=== PATIENT | male | born 1975 | race African-American/Black ===

== ENCOUNTER 2017-04-22 14:48 | Emergency (ER) | payer OTHER ==
[~2017-04-22] VITALS: Ht 188 cm; Wt 107.0 kg
[2017-04-22 14:53] VITALS: TEMP 36.9; Ht 188 cm; Wt 107.0 kg
[2017-04-22] MEDS ORDERED: ONDANSETRON INJ 2 MG/ML 2 ML VIAL IV STA (15:38)
[2017-04-22] MEDS ORDERED: SODIUM CHLORIDE 0.9% 500ML 500 ML IV STA (15:38)
[2017-04-22] MEDS ORDERED: MoRPHine SULFATE 10 MG/ML CARP/VIAL IV STA ×2 (15:38→17:55)
[2017-04-22] MEDS ORDERED: KETOROLAC TROMETHAMINE 30 MG/ML VIAL IV STA (15:38)
[2017-04-22] MEDS ORDERED: DEXAMETHASONE SOD INJ 4 MG/ML VIAL IV STA (15:38)
[2017-04-22 16:11] LABS: BASO % 0.3 %; BASO ABS # 0.02 K/uL (0-0.2); COMPLETE YES; EOS % 0.3 %; HEMATOCRIT 45.4 % (42-52); IG% 0.1 %; LYMPH % 34.3 %; LYMPH ABS # 2.38 K/uL (1.2-3.4); MEAN CELL VOLUME 86.8 fL (80-100); MEAN CORPUSCULAR HEMOGLOBIN 31.9 pg (25-34); MEAN CORPUSCULAR HGB CONC 36.8 g/dl (32-36); MEAN PLATELET VOLUME 10.1 fL (7.4-10.4); MONO % 12.1 %; NEUT % 52.9 %; PLATELET COUNT 212 K/uL (130-400); RED BLOOD COUNT 5.23 M/uL (4.7-6.1); WHITE BLOOD COUNT 6.94 K/uL (4.8-10.8)
[2017-04-22 16:30] LABS: BLOOD UREA NITROGEN 17 mg/dl (7-18); BUN/CREATININE RATIO 15.3 (10-20); CALCIUM 9.3 mg/dl (8.5-10.1); CARBON DIOXIDE 25 mmol/L (21-32); CHLORIDE 108 mmol/L (98-107); GLUCOSE 100 mg/dl (70-99); POTASSIUM 3.3 mmol/L (3.5-5.1); SODIUM 142 mmol/L (136-145)
[2017-04-22 16:31] LABS: C-REACTIVE PROTEIN < 0.29 mg/dl (0-0.29)
--- NOTE | 2017-04-22 17:06 | DIAGNOSTIC IMAGING REPORT ---
LUMBAR SPINE MRI HISTORY: Pain. Urinary retention. RLE radiculitis, urinary "difficulty", RLE weakness TECHNIQUE: Multiplanar multisequence MRI of the lumbar spine was performed without the use of contrast. COMPARISON: None. FINDINGS: For the purpose of the report the L5-S1 disc space will be located on axial image 27 of 30. Signal characteristics the osseous structures are unremarkable. Sagittal images suggest mild disc desiccation L2-L3. L1-L2: No significant central canal or neural foraminal narrowing. L2-L3: Soft tissue prominence occupying the right neuroforamina at L2-L3. This may relate to an extruded disc fragment. Dimensions are 1.3 x 0.7 cm. No impact of significant spinal thecal sac. Left neuroforamina is patent. L3-L4: No significant central canal or neural foraminal narrowing. L4-L5: No significant central canal or neural foraminal narrowing. L5-S1: No significant central canal or neural foraminal narrowing. IMPRESSION: 1. Soft tissue prominence occupying the bulk of the right neuroforamina at L2-L3. 2. Signal characteristics suggest this potentially represents an extruded disc fragment . 3. Otherwise negative study Electronically signed by: Kelechi Hobson M.D. 04/22/2017 5:04 PM Dictated Date/Time: 04/22/2017 5:00 PM
[2017-04-22 17:36] LABS: LYME DISEASE AB IGG NEG (NEG); LYME DISEASE AB IGM NEG (NEG)
[2017-04-22 17:50] VITALS: BP 138/83; PULSE 79; O2SAT 97
--- NOTE | 2017-04-22 18:21 | EMERGENCY ROOM VISIT NOTE ---
History First contact with patient: 15:05 Chief Complaint: BACK PAIN Stated Complaint: SEVERE LOWER BACK PAIN, REDICULOPATHY REDICULITIS History of Present Illness The patient is a 41 year old male inmate who presents to the Emergency Room with complaints of severe lower back pain radiating into the right lower extremity. The patient reports that he injured his back lifting a 6 inch sanches of potatoes approximately 3 weeks ago. The patient now reports persistent and worsening pain radiating from his lower back, around the hip to the groin and down the front and inner aspect of the thigh. He also reports a tingling and numb sensation from the leg into the foot. He reports some weakness in the leg , as well as difficulty with urination. He denies any incontinence of stool or bowel. The patient reports that he has had some back problems in the past. He did have imaging studies authorize for his back, but does not recall if it was for a CT or MRI of the back. The patient denies any recent infections, fevers or chills, and currently rates his discomfort an 8 out of 10. 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 Surgical Problems: (1) No history of previous surgery Family History Unknown Social History Smoking Status: Current Every Day Smoker Alcohol Use: none Marital Status: single Housing Status: other (incarcerated) Current/Historical Medications No Active Prescriptions or Reported Meds Allergies Coded Allergies: No Known Allergies (Unverified , 04/22/17) Physical Exam Vital Signs Date Time Temp Pulse Resp B/P (MAP) Pulse Ox O2 Delivery O2 Flow Rate FiO2 04/22/17 17:50 79 16 138/83 97 Room Air 04/22/17 16:12 64 18 159/97 100 Room Air 04/22/17 14:53 36.9 78 18 150/105 100 Room Air Physical Exam CONSTITUTIONAL: Healthy and well nourished. Alert and oriented X 3 with positive affect. The patient appears in moderate discomfort. HEENT: Normocephalic, atraumatic. Pupils equal, round and reactive. NECK: Full active range of motion without discomfort. RESPIRATORY: Clear to auscultation bilaterally with no wheezing, crackles, rhonchi or stridor. CARDIOVASCULAR: Regular rate and rhythm with no murmurs, rubs or gallops. GASTROINTESTINAL: Bowel sounds present in all quadrants. Soft and nontender to palpation. MUSCULOSKELETAL: Examination shows general discomfort to palpation through the lower lumbar spine, paraspinous muscles and SI joints, right worse than left. Negative logroll. Positive straight leg raise on the right. Ankle plantar dorsiflexion strength is 4 out of 5 on the right, 5 out of 5 on the left. Pedal pulses are intact. INTEGUMENTARY: No rash or other significant dermatologic conditions noted. NEUROLOGIC: Cranial nerves II-XII grossly intact. No focal neurologic deficits noted. Right foot and toes are sensory intact, however there is a decreased 2 point discrimination when compared to the left. Deep tendon reflexes are 1+ on the right, 2+ on the left. Medical Decision & Procedures ER Provider Diagnostic Interpretation: A noncontrast MRI of the lumbar spine shows degenerative changes without evidence for central canal stenosis, herniated nucleus pulposus or fracture. Radiologist report is as follows: LUMBAR SPINE MRI HISTORY: Pain. Urinary retention. RLE radiculitis, urinary "difficulty", RLE weakness TECHNIQUE: Multiplanar multisequence MRI of the lumbar spine was performed without the use of contrast. COMPARISON: None. FINDINGS: For the purpose of the report the L5-S1 disc space will be located on axial image 27 of 30. Signal characteristics the osseous structures are unremarkable. Sagittal images suggest mild disc desiccation L2-L3. L1-L2: No significant central canal or neural foraminal narrowing. L2-L3: Soft tissue prominence occupying the right neuroforamina at L2-L3. This may relate to an extruded disc fragment. Dimensions are 1.3 x 0.7 cm. No impact of significant spinal thecal sac. Left neuroforamina is patent. L3-L4: No significant central canal or neural foraminal narrowing. L4-L5: No significant central canal or neural foraminal narrowing. L5-S1: No significant central canal or neural foraminal narrowing. IMPRESSION: 1. Soft tissue prominence occupying the bulk of the right neuroforamina at L2-L3. 2. Signal characteristics suggest this potentially represents an extruded disc fragment . 3. Otherwise negative study Laboratory Results 04/22/17 15:58 Red Blood Count 5.23, Mean Corpuscular Volume 86.8, Mean Corpuscular Hemoglobin 31.9, Mean Corpuscular Hemoglobin Concent 36.8, Mean Platelet Volume 10.1, Neutrophils (%) (Auto) 52.9, Lymphocytes (%) (Auto) 34.3, Monocytes (%) (Auto) 12.1, Eosinophils (%) (Auto) 0.3, Basophils (%) (Auto) 0.3, Neutrophils # (Auto ) 3.67, Lymphocytes # (Auto) 2.38, Monocytes # (Auto) 0.84, Eosinophils # (Auto ) 0.02, Basophils # (Auto) 0.02 04/22/17 15:58 Test 04/22/17 15:58 White Blood Count 6.94 K/uL (4.8-10.8) Red Blood Count 5.23 M/uL (4.7-6.1) Hemoglobin 16.7 g/dL (14.0-18.0) Hematocrit 45.4 % (42-52) Mean Corpuscular Volume 86.8 fL (80-100) Mean Corpuscular Hemoglobin 31.9 pg (25-34) Mean Corpuscular Hemoglobin Concent 36.8 g/dl (32-36) Platelet Count 212 K/uL (130-400) Mean Platelet Volume 10.1 fL (7.4-10.4) Neutrophils (%) (Auto) 52.9 % Lymphocytes (%) (Auto) 34.3 % Monocytes (%) (Auto) 12.1 % Eosinophils (%) (Auto) 0.3 % Basophils (%) (Auto) 0.3 % Neutrophils # (Auto) 3.67 K/uL (1.4-6.5) Lymphocytes # (Auto) 2.38 K/uL (1.2-3.4) Monocytes # (Auto) 0.84 K/uL (0.11-0.59) Eosinophils # (Auto) 0.02 K/uL (0-0.5) Basophils # (Auto) 0.02 K/uL (0-0.2) RDW Standard Deviation 40.5 fL (36.4-46.3) RDW Coefficient of Variation 12.6 % (11.5-14.5) Immature Granulocyte % (Auto) 0.1 % Immature Granulocyte # (Auto) 0.01 K/uL (0.00-0.02) Erythrocyte Sedimentation Rate 10 mm/hr (0-14) Anion Gap 9.0 mmol/L (3-11) Est Creatinine Clear Calc Drug Dose 117.5 ml/min Estimated GFR () 97.5 Estimated GFR (Non- 84.1 BUN/Creatinine Ratio 15.3 (10-20) Calcium Level 9.3 mg/dl (8.5-10.1) C-Reactive Protein < 0.29 mg/dl (0-0.29) Lyme Disease IgG Antibody NEG (NEG) Lyme Disease IgM Antibody NEG (NEG) Medications Administered Medications (Trade) Dose Ordered Sig/Jimmie Route Start Time Stop Time Status Last Admin Dose Admin Morphine Sulfate (MoRPHine SULFATE INJ) 8 mg NOW STAT IV 04/22/17 15:38 04/22/17 15:44 DC 04/22/17 16:06 8 MG Ketorolac Tromethamine (Toradol Inj) 30 mg NOW STAT IV 04/22/17 15:38 04/22/17 15:44 DC 04/22/17 16:06 30 MG Ondansetron HCl (Zofran Inj) 4 mg NOW STAT IV 04/22/17 15:38 04/22/17 15:44 DC 04/22/17 16:05 4 MG Dexamethasone Sodium Phosphate (Decadron Inj) 10 mg NOW STAT IV 04/22/17 15:38 04/22/17 15:44 DC 04/22/17 16:06 10 MG Sodium Chloride 500 ml @ 999 mls/hr Q31M STAT IV 04/22/17 15:38 04/22/17 16:08 DC 04/22/17 16:06 999 MLS/HR Morphine Sulfate (MoRPHine SULFATE INJ) 8 mg NOW STAT IV 04/22/17 17:55 04/22/17 17:56 DC 04/22/17 18:09 8 MG Procedure 1. IV hydration: The patient was administered normal saline 500 mL bolus 2. IV medications: The patient initially received morphine 8 mg, Toradol 30 mg , Zofran 4 mg and Decadron 10 mg IVP ED Course Patient history and physical exam were performed. Nurse's notes were reviewed. Vital signs were reviewed, showing a blood pressure 150/105. The patient is afebrile. I also reviewed documentation that accompanied the patient, showing that the patient has a history of back injury approximately 8 years ago. It is also noted that the patient had x-rays of the thoracic, lumbar and sacral region completed on 04/22/17 that was unremarkable per corrective medicine physician review. The patient does not recall having these x-rays performed. The patient appears in moderately severe discomfort. IV access was established , and labs were drawn. The patient was hydrated with normal saline, and received IV medications as discussed in the previous Procedure section. Review of labs does not show any acute findings. Lyme screen is negative. Sedimentation rate and CRP are also normal. Noncontrast MRI of the lumbar spine shows the possibility of a small extruded fragment. Otherwise there is no evidence for large herniated nucleus pulposus, fracture or other significant findings. The patient was advised of his MRI findings. A note was provided for further management with muscle relaxers, corticosteroids and analgesics as needed, with referral to spine surgery as well and as needed for any persistent symptoms. The patient was administered an additional dose of morphine prior to discharge. Medical Decision Impression Primary Impression: Right lumbar radiculitis Additional Impression: Elevated blood pressure reading Departure Information Prescriptions No Active Prescriptions or Reported Meds Referrals Sherry RANKIN (PCP) Patient Instructions My [facility] Problem Qualifiers
[2017-05-15] MEDS ORDERED: ACET-1256 PO (13:39)
[2017-05-15] MEDS ORDERED: METH500T37 PO (13:39)
== END 2017-04-22 18:23 | disposition home or self-care (01) ==
LOC: C.EDB 14:51 → C.EDC 18:23
DX: M54.16 Radiculopathy, lumbar region (principal); R03.0 Elevated blood-pressure reading, without diagnosis of hypertension; F17.200 Nicotine dependence, unspecified, uncomplicated; Z87.828 Personal history of other (healed) physical injury and trauma